=== PATIENT | male | born 1950 | race Caucasian/White ===

== ENCOUNTER 2019-03-30 07:47 | Inpatient (IN) | payer OTHER ==
[2019-03-22 16:46] LABS: EOSINOPHILS # (AUTO) 0.1 X10'3 (0-0.9); LYMPHOCYTES # (AUTO) 2.2 X10'3 (1.1-4.8); LYMPHOCYTES % (AUTO) 41.8 % (21-51); MEAN CORPUSCULAR HEMOGLOBIN 30.1 PG (27.0-31.0); MEAN CORPUSCULAR HGB CONC 34.6 g/dL (33.0-36.5); MEAN CORPUSCULAR VOLUME 87.1 FL (78-98); MEAN PLATELET VOLUME 10.1 FL (7.4-10.4); MONOCYTES # (AUTO) 0.5 X10'3 (0-0.9); MONOCYTES % (AUTO) 10.4 % (2-12); NEUTROPHILS # (AUTO) 2.3 X10'3 (1.8-7.7); NEUTROPHILS % (AUTO) 44.8 % (42-75); PRE OP HEMATOCRIT 40.9 % (42.0-52.0); PRE OP HEMOGLOBIN 14.2 g/dL (14.0-17.9); PRE OP PLATELET COUNT 181 X10'3 (140-440); RED CELL DISTRIBUTION WIDTH 14.8 % (11.5-14.5)
[2019-03-22 16:56] LABS: CLARITY,URINE CLEAR (Clear); COLOR,URINE YELLOW (Yellow); GLUCOSE, URINE NEGATIVE (Neg); KETONES,URINE TRACE mg/dl (Neg); LEUKOCYTE ESTERASE ,URINE NEGATIVE (Neg); NITRITES, URINE NEGATIVE (Neg); OCCULT BLOOD,URINE NEGATIVE (Neg); PROTEIN,URINE NEGATIVE (Neg); UROBILINOGEN,URINE 0.2 E.U/dL (0.2-1.0)
[2019-03-22 17:00] LABS: ALBUMIN 3.7 G/DL (3.4-5.0); ALBUMIN/GLOBULIN RATIO 1.2 (1.1-1.5); ALKALINE PHOSPHATASE 42 IU/L (46-116); BLOOD UREA NITROGEN 20 MG/DL (7-18); BUN/CREATININE RATIO 27.4 (5.4-32.0); CALCIUM 8.9 MG/DL (8.5-10.1); CHLORIDE 105 MMOL/L (99-107); CREATININE 0.73 MG/DL (0.60-1.10); PRE OP ALT 40 U/L (30-65); PRE OP ANION GAP 10 (8-16); PRE OP AST 15 U/L (10-37); PRE OP BILIRUB, TOTAL 0.8 MG/DL (0.0-1.0); PRE OP GLUCOSE 110 MG/DL (70-104); PRE OP POTASSIUM 3.8 MMOL/L (3.4-5.1); PRE OP SODIUM 139 MMOL/L (135-145); TOTAL CARBON DIOXIDE 24.2 MMOL/L (24-32); TOTAL PROTEIN 6.7 G/DL (6.4-8.2); eGFR > 90 ML/MIN
[2019-03-22 17:09] LABS: UA COLLECTION TYPE NON-SPECIFIED
[2019-03-22 17:10] LABS: PRE OP PROTIME 10.2 SECONDS (9.0-12.0)
[~2019-03-30] VITALS: Ht 180.3 cm; Wt 89.8 kg
[2019-03-30] VITALS (21 sets, daily range): BP systolic 104–158; BP diastolic 21–94
[~2019-03-30 07:47] MED LIST: DICL75TA5 PO; HYDR-3972 PO; HYDROmorphone inj. 0.5 MG/0.5 ML DISP.SYRIN IV PRN; LATA2.5D2 RIGHTEYE; TIMO5DRO4 EACHEYE; TRAZ-219 PO; acetaminophen 325mg tablet PO ONE; acetaminophen 325mg tablet PO PRN; bisacodyl 10mg suppository rectal RC PRN; cefazolin/dext.iso 2gm/100 ML IV ONE; celeCOXIB 100mg capsule PO ONE; diphenhydrAMINE 25mg capsule PO PRN; famotidine 20mg tablet PO ONE; gabapentin 300mg capsule PO ONE; magnesium hydroxide 30ml (MOM) UD suspension PO PRN; metoclopramide 5 mg/ml inj IV ONE; ondansetron/PF 4mg/2ml inj IV PRN; oxyCODONE SR 10mg (sust. release) tab -2 tabs (20mg) PO ONE; oxyCODONE/APAP 10/325mg tablet PO PRN; ringers solution, lacted 1,000 ML IV SCH; tranexamic acid inj. 1,000 MG in normal saline 100 ML IV ONE; vancomycin inj 1,500 MG in normal saline 300ml IV soln IV ONE
[2019-03-30] MEDS ORDERED: ROPIVAcaine inj 250 MG, ketorolac tromethamine inj. 30 MG, epiNEPHrine inj 0.5 MG in no... IU ONE (09:00)
[2019-03-30] MEDS ORDERED: tetracaine 1% (10mg/ml) pres. free inj. ONE (09:59)
[2019-03-30] MEDS ORDERED: ROPIVAcaine 0.5% (5mg/ml) 30ml vial ONE (09:59)
[2019-03-30] MEDS ORDERED: fentaNYL/PF 50MCG/1 ML 2ML syringe ONE (10:01)
[2019-03-30] MEDS ORDERED: MIDAZolam 1mg/ml 10ml vial ONE (10:01)
[2019-03-30] MEDS ORDERED: vancomycin 1,000mg inj ONE (10:47)
[2019-03-30] MEDS ORDERED: ringers solution, lacted 1,000 ML IV SCH (11:07)
[2019-03-30] MEDS ORDERED: ondansetron/PF 4mg/2ml inj IV PRN (11:10)
[2019-03-30] MEDS ORDERED: meperidine/PF 25mg/ml syringe IV PRN ×3 (11:10)
[2019-03-30] MEDS ORDERED: proCHLORperazine 10 MG/2 ml inj IV PRN (11:10)
[2019-03-30] MEDS ORDERED: morphine 4 MG/ML inj SYRINge IV PRN ×2 (11:10)
[2019-03-30] MEDS ORDERED: propofol inj 20 ML IV ONE (11:45)
--- NOTE | 2019-03-30 12:11 | NUR ---
Received from OR via , accompanied by Anesthesiologist DR. ALVARADO and report given by Anesthesiolgist. PATIENT ARRIVED VIA HOSPITAL BED, A&OX4, VSS CHARTED, 18GAUGE PIV TO LEFT AC, DARLENE DRESSING TO RIGHT KNEE WITH ICE PACK, EMMANUEL CDI. SENSATION NOTED AT T-11, SCD'S IN PLACE. WILL CONTINUE TO MONITOR.
[2019-03-30] MEDS: ROPIVAcaine 0.2%/PF PAIN PUMP 550 ML IJ SCH ×2 (12:36→21:19)
--- NOTE | 2019-03-30 13:41 | NUR ---
PATIENT TRANSFER CRITERIA MET. REPORT CALLED TO RENATE DAWKINS ON ORTHO ALL QUESTIONS AND CONCERNS ADDRESSED. PATIENT DRESSING TO RIGHT KNEE CD, ON-Q PUMP IN PLACE WITH ICE PACK, SCD'S IN PLACE. PIC INFUSING IVF ORDERED. PATIENT TRANSFERRED WITH ALL PERSONAL BELONGINGS ACCOMPANIED BY STAFF.
[2019-03-30] MEDS: gabapentin 300mg capsule PO SCH ×2 (14:13→21:21)
[2019-03-30] MEDS: timolol 0.5% ophthalmic solution 5ml bottle EACHEYE SCH (15:34)
[2019-03-30] MEDS: cefazolin/dext.iso 2gm/100ml 100 ML IV SCH (15:35)
[2019-03-30] MEDS ORDERED: tranexamic acid inj. 900 MG in normal saline 100ml IV soln 100 ML IV ONE (16:43)
[2019-03-30] MEDS: oxyCODONE/APAP 10/325mg tablet PO PRN ×2 (16:46→21:20)
[2019-03-30] MEDS: potassium cl 20mEq in 1/2 NS 1,000 ML IV SCH (16:55)
--- NOTE | 2019-03-30 18:35 | NUR ---
Patient in room ORTHO 4016. I have received report from JUANCHO Valdivia and had the opportunity to ask questions and assume patient care.
[2019-03-30] MEDS: HYDROmorphone 1 mg/ml syringe IV PRN ×2 (19:35→23:26)
[2019-03-30] MEDS ORDERED: non-formulary drug (Trazodone HCl 1 TAB) PO SCH (21:00)
[2019-03-30] MEDS: traZODone 50mg tablet PO SCH (21:20)
[2019-03-30] MEDS: sennosides 8.6mg tablet PO SCH (21:20)
[2019-03-30] MEDS: latanoprost 0.005% 2.5ml ophthalmic drops RIGHTEYE SCH (22:16)
[2019-03-31] VITALS (7 sets, daily range): BP systolic 101–137; BP diastolic 60–72
[2019-03-31] MEDS: cefazolin/dext.iso 2gm/100ml 100 ML IV SCH (00:38)
[2019-03-31] MEDS: ROPIVAcaine 0.2%/PF PAIN PUMP 550 ML IJ SCH (00:39)
[2019-03-31] MEDS: potassium cl 20mEq in 1/2 NS 1,000 ML IV SCH ×4 (02:47→23:04)
[2019-03-31] MEDS: oxyCODONE/APAP 10/325mg tablet PO PRN ×5 (04:57→22:08)
--- NOTE | 2019-03-31 06:26 | NUR ---
Problems reprioritized. Patient report given, questions answered & plan of care reviewed with JUANCHO Alberto.
--- NOTE | 2019-03-31 06:47 | NUR ---
Patient in room ORTHO 4016. I have received report from Ruthie DAWKINS and had the opportunity to ask questions and assume patient care.
[2019-03-31 07:15] LABS: BASOPHILS % (AUTO) 0.6 % (0-1); EOSINOPHILS # (AUTO) 0.1 X10'3 (0-0.9); EOSINOPHILS % (AUTO) 1.3 % (0-6); HEMATOCRIT 37.4 % (42.0-52.0); HEMOGLOBIN 12.7 g/dl (14.0-17.9); LYMPHOCYTES # (AUTO) 1.1 X10'3 (1.1-4.8); LYMPHOCYTES % (AUTO) 14.1 % (21-51); MEAN CORPUSCULAR HEMOGLOBIN 29.7 PG (27.0-31.0); MEAN CORPUSCULAR VOLUME 87.2 FL (78-98); MEAN PLATELET VOLUME 9.5 FL (7.4-10.4); MONOCYTES # (AUTO) 0.7 X10'3 (0-0.9); MONOCYTES % (AUTO) 8.5 % (2-12); NEUTROPHILS # (AUTO) 5.9 X10'3 (1.8-7.7); NEUTROPHILS % (AUTO) 75.5 % (42-75); PLATELET COUNT 144 X10'3 (140-440); RED BLOOD COUNT 4.28 X10'6 (4.70-6.10); RED CELL DISTRIBUTION WIDTH 13.9 % (11.5-14.5); WHITE BLOOD COUNT 7.8 X10'3 (4.5-11.0)
[2019-03-31 07:44] LABS: ANION GAP 6 (8-16); CHLORIDE 105 MMOL/L (99-107); POTASSIUM 4.6 MMOL/L (3.5-5.1); SODIUM 138 MMOL/L (135-145); TOTAL CARBON DIOXIDE 26.7 MMOL/L (24-32)
[2019-03-31] MEDS: ascorbic acid 500mg tablet PO SCH ×2 (08:16→20:09)
[2019-03-31] MEDS: timolol 0.5% ophthalmic solution 5ml bottle EACHEYE SCH (08:16)
[2019-03-31] MEDS: multivitamins, therapeutics tablet PO SCH (08:17)
[2019-03-31] MEDS: gabapentin 300mg capsule PO SCH ×3 (08:17→20:09)
[2019-03-31] MEDS: HYDROmorphone 1 mg/ml syringe IV PRN ×3 (08:17→20:14)
[2019-03-31] MEDS: aspirin 325mg tablet PO SCH (08:17)
--- NOTE | 2019-03-31 08:21 | NUR ---
increased on Q pump to 12ml/hr, will continue to monitor
--- NOTE | 2019-03-31 11:23 | NUR ---
Student documentation: I have reviewed all interventions, assessments performed and documented by Sari Blum. Student Medication Administration: For this medication-pass time frame, all medication were reviewed, dispensed, administered and documented per hospital policy [facility]
--- NOTE | 2019-03-31 18:28 | NUR ---
Problems reprioritized. Patient report given, questions answered & plan of care reviewed with Nasrin DAWKINS.
[2019-03-31] MEDS: sennosides 8.6mg tablet PO SCH (20:09)
[2019-03-31] MEDS: celeCOXIB 100mg capsule PO SCH (20:09)
[2019-03-31] MEDS: traZODone 50mg tablet PO SCH (20:09)
[2019-03-31] MEDS: latanoprost 0.005% 2.5ml ophthalmic drops RIGHTEYE SCH (20:12)
[2019-04-01] MEDS: oxyCODONE/APAP 10/325mg tablet PO PRN ×2 (04:44→08:20)
--- NOTE | 2019-04-01 06:01 | NUR ---
Problems reprioritized. Patient report given, questions answered & plan of care reviewed with JUANCHO Alberto.
[2019-04-01 06:10] VITALS: BP 125/75
--- NOTE | 2019-04-01 06:38 | NUR ---
Patient in room ORTHO 4016. I have received report from Nasrin DAWKINS and had the opportunity to ask questions and assume patient care.
[2019-04-01] MEDS: HYDROmorphone 1 mg/ml syringe IV PRN (06:43)
[2019-04-01 07:05] LABS: BASOPHILS % (AUTO) 0.6 % (0-1); EOSINOPHILS # (AUTO) 0.1 X10'3 (0-0.9); HEMATOCRIT 35.2 % (42.0-52.0); HEMOGLOBIN 12.1 g/dl (14.0-17.9); LYMPHOCYTES # (AUTO) 1.9 X10'3 (1.1-4.8); LYMPHOCYTES % (AUTO) 29.5 % (21-51); MEAN CORPUSCULAR HEMOGLOBIN 29.9 PG (27.0-31.0); MEAN CORPUSCULAR HGB CONC 34.2 g/dL (33.0-36.5); MEAN CORPUSCULAR VOLUME 87.4 FL (78-98); MEAN PLATELET VOLUME 10.3 FL (7.4-10.4); MONOCYTES # (AUTO) 0.6 X10'3 (0-0.9); MONOCYTES % (AUTO) 9.4 % (2-12); NEUTROPHILS # (AUTO) 3.8 X10'3 (1.8-7.7); NEUTROPHILS % (AUTO) 58.5 % (42-75); PLATELET COUNT 144 X10'3 (140-440); RED BLOOD COUNT 4.03 X10'6 (4.70-6.10); RED CELL DISTRIBUTION WIDTH 14.4 % (11.5-14.5); WHITE BLOOD COUNT 6.5 X10'3 (4.5-11.0)
[2019-04-01] MEDS: gabapentin 300mg capsule PO SCH (08:18)
[2019-04-01] MEDS: timolol 0.5% ophthalmic solution 5ml bottle EACHEYE SCH (08:18)
[2019-04-01] MEDS: aspirin 325mg tablet PO SCH (08:19)
[2019-04-01] MEDS: celeCOXIB 100mg capsule PO SCH (08:19)
[2019-04-01] MEDS: multivitamins, therapeutics tablet PO SCH (08:19)
[2019-04-01] MEDS: ascorbic acid 500mg tablet PO SCH (08:19)
--- NOTE | 2019-04-01 09:10 | NUR ---
patient states he has a BM every 4-5 days Addendum: 04/01/19 at 0914 by Sari ALARCON Amended: Links added.
[2019-04-01 09:22] VITALS: BP 146/78
[2019-04-01] MEDS ORDERED: ASPI-1 PO (10:33)
[2019-04-01] MEDS ORDERED: PER10325T PO (10:34)
--- NOTE | 2019-04-01 12:07 | NUR ---
Patient discharged with all belongings to home with spouse, patient educated on picco dressing and on-Q-pump, bedside delivery of new medications
== END 2019-04-01 11:45 | disposition home or self-care (01) | DRG 470 ==
LOC: PAS IN 07:47 → EDSTATUS 11:45 → ORTHO 4S 13:39
PROVIDERS: ADMIT Orthopaedic Surgery; ATTEND Orthopaedic Surgery
PROC: 3E0T3BZ Introduction of Anesthetic Agent into Peripheral Nerves and Plexi, Percutaneous Approach (ICD-10-PCS; 2019-03-30)
PROC: 0SRC0J9 Replacement of Right Knee Joint with Synthetic Substitute, Cemented, Open Approach (ICD-10-PCS; principal; 2019-03-30 09:58)
DX: M17.11 Unilateral primary osteoarthritis, right knee (principal); D62 Acute posthemorrhagic anemia; H40.9 Unspecified glaucoma; Z79.899 Other long term (current) drug therapy; Z80.9 Family history of malignant neoplasm, unspecified; Z84.89 Family history of other specified conditions
CPT/HCPCS: 36415; 71046; 73560; 80051; 80053; 81003; 82948; 85025; 85610; 85730; 86885; 86900; 86901; 87070; 97110; 97116; 97161; 97530; A6449; A6455; A7000; C1713; C1758; C1776; G0378; J0171; J0690; J1170; J1885; J2250; J2704; J2765; J2795; J3010; J3370; J7030; J7120

== ENCOUNTER 2021-02-23 05:37 | Day surgery (SDC) | payer MEDICARE, BC ==
[2021-02-16 14:39] LABS: BASOPHILS # (AUTO) 0.1 X10'3 (0-0.2); BASOPHILS % (AUTO) 1.2 % (0-1); EOSINOPHILS # (AUTO) 0.1 X10'3 (0-0.9); EOSINOPHILS % (AUTO) 1.9 % (0-6); LYMPHOCYTES # (AUTO) 2.1 X10'3 (1.1-4.8); LYMPHOCYTES % (AUTO) 36.9 % (21-51); MEAN CORPUSCULAR HEMOGLOBIN 29.8 PG (27.0-31.0); MEAN CORPUSCULAR HGB CONC 34.1 g/dL (33.0-36.5); MEAN CORPUSCULAR VOLUME 87.3 FL (78-98); MEAN PLATELET VOLUME 10.6 FL (7.4-10.4); MONOCYTES # (AUTO) 0.6 X10'3 (0-0.9); MONOCYTES % (AUTO) 10.8 % (2-12); NEUTROPHILS # (AUTO) 2.8 X10'3 (1.8-7.7); NEUTROPHILS % (AUTO) 49.2 % (42-75); PRE OP HEMATOCRIT 43.3 % (42.0-52.0); PRE OP HEMOGLOBIN 14.8 g/dL (14.0-17.9); PRE OP PLATELET COUNT 191 X10'3 (140-440); RED BLOOD COUNT 4.96 X10'6 (4.70-6.10)
[2021-02-16 14:46] LABS: CLARITY,URINE CLEAR (Clear); COLOR,URINE STRAW (Yellow); GLUCOSE, URINE NEGATIVE (Neg); KETONES,URINE NEGATIVE (Neg); LEUKOCYTE ESTERASE ,URINE NEGATIVE (Neg); NITRITES, URINE NEGATIVE (Neg); OCCULT BLOOD,URINE NEGATIVE (Neg); PROTEIN,URINE NEGATIVE (Neg); UROBILINOGEN,URINE 0.2 E.U/dL (0.2-1.0)
[2021-02-16 14:51] LABS: UA COLLECTION TYPE VOIDED
[2021-02-16 14:54] LABS: ALBUMIN 3.9 G/DL (3.4-5.0); ALBUMIN/GLOBULIN RATIO 1.2 (1.1-1.5); ALKALINE PHOSPHATASE 54 IU/L (46-116); BLOOD UREA NITROGEN 18 MG/DL (7-18); CALCIUM 8.7 MG/DL (8.5-10.1); CHLORIDE 106 MMOL/L (99-107); CREATININE 0.75 MG/DL (0.60-1.10); PRE OP ALT 55 U/L (30-65); PRE OP ANION GAP 9 (8-16); PRE OP AST 16 U/L (10-37); PRE OP GLUCOSE 97 MG/DL (70-104); PRE OP POTASSIUM 4.1 MMOL/L (3.4-5.1); PRE OP SODIUM 140 MMOL/L (135-145); TOTAL CARBON DIOXIDE 24.8 MMOL/L (24-32); TOTAL PROTEIN 7.1 G/DL (6.4-8.2); eGFR > 90 ML/MIN
[~2021-02-23] VITALS: Ht 177.8 cm; Wt 95.3 kg
[2021-02-23] VITALS (13 sets, daily range): BP systolic 121–142; BP diastolic 74–90
[~2021-02-23 05:37] MED LIST changes: +DICL-211 PO; -DICL75TA5 PO; -HYDR-3972 PO; -HYDROmorphone inj. 0.5 MG/0.5 ML DISP.SYRIN IV PRN; -LATA2.5D2 RIGHTEYE; -TRAZ-219 PO; -acetaminophen 325mg tablet PO ONE; -acetaminophen 325mg tablet PO PRN; -bisacodyl 10mg suppository rectal RC PRN; -cefazolin/dext.iso 2gm/100 ML IV ONE; -celeCOXIB 100mg capsule PO ONE; -diphenhydrAMINE 25mg capsule PO PRN; -gabapentin 300mg capsule PO ONE; -magnesium hydroxide 30ml (MOM) UD suspension PO PRN; -metoclopramide 5 mg/ml inj IV ONE; -ondansetron/PF 4mg/2ml inj IV PRN; -oxyCODONE SR 10mg (sust. release) tab -2 tabs (20mg) PO ONE; -oxyCODONE/APAP 10/325mg tablet PO PRN; -tranexamic acid inj. 1,000 MG in normal saline 100 ML IV ONE; -vancomycin inj 1,500 MG in normal saline 300ml IV soln IV ONE
[2021-02-23] MEDS ORDERED: bacitracin 15gm ointment TP ONE (06:38)
[2021-02-23] MEDS ORDERED: ceFAZolin 2gm in dextrose, iso 50 ML IV ONE (06:55)
[2021-02-23] MEDS ORDERED: propofol inj 20 ML IV ONE (06:55)
[2021-02-23] MEDS ORDERED: sevoflurane 250ml liquid IH ONE (06:56)
[2021-02-23] MEDS ORDERED: ondansetron/PF 4mg/2ml inj ONE (06:56)
[2021-02-23] MEDS ORDERED: dexamethasone sod phosphate 10mg/ml inj ONE (06:56)
[2021-02-23] MEDS ORDERED: MIDAZolam 1 MG/ML 5ML VIAL ONE (06:57)
[2021-02-23] MEDS ORDERED: fentaNYL/PF 50MCG/1 ML 2ML syringe ONE (06:57)
[2021-02-23] MEDS ORDERED: morphine 2 MG/ML inj. syringe IV PRN (08:15)
[2021-02-23] MEDS ORDERED: proCHLORperazine 10 MG/2 ml inj IV PRN (08:15)
[2021-02-23] MEDS ORDERED: ROPIVAcaine 0.2%/PF PUMP/bolus 550 ML POPLITEAL SCH (08:15)
[2021-02-23] MEDS ORDERED: ringers solution, lacted 1,000 ML IV SCH (08:15)
[2021-02-23] MEDS ORDERED: meperidine/PF 25mg/ml syringe IV PRN ×3 (08:15)
[2021-02-23] MEDS ORDERED: ROPIVAcaine 0.2% (10 MG/5 ML) BOLUS INJECTION POPLITEAL PRN (08:15)
[2021-02-23] MEDS ORDERED: ondansetron/PF 4mg/2ml inj IV PRN (08:15)
[2021-02-23] MEDS ORDERED: ketorolac trometh. 30mg/ml inj. ONE (11:10)
[2021-02-23] MEDS ORDERED: ROPIVAcaine 0.5% (5mg/ml) 30ml vial ONE (11:10)
--- NOTE | 2021-02-23 11:25 | NUR ---
Received from OR via [facility] , accompanied by Anesthesiologist LURDES and report given by Anesthesiolgist. PATIENT WITH ON Q SITE TO LEFT THIGH AREA. LEFT LE SPLINT IS CDI AND TOES ARE PWD. 10L MASK ON AND PATIENT VSS. 20G PIV IN RIGHT UE RUNNING LR AT 100. FOOT OF BED GATCHED. Addendum: 02/23/21 at 1139 by Rafael Aguiar RN, RN Amended: Links added.
[2021-02-23] MEDS: morphine 4 MG/ML inj SYRINge IV PRN ×2 (12:07→12:40)
[2021-02-23] MEDS ORDERED: fentaNYL/PF 50MCG/1 ML 2ML syringe IV PRN ×2 (12:45)
[2021-02-23] MEDS ORDERED: HYDROmorphone/PF 0.2 MG/ML SYRINGE IV PRN ×2 (12:45)
--- NOTE | 2021-02-23 13:19 | NUR ---
PATIENT DEEP BREATHED AND COUGHED Q 10 MINS WHILE HERE IN RR. O2 SATS WNL. Addendum: 02/23/21 at 1320 by Rafael Aguiar RN, RN Amended: Links added.
[2021-02-23] MEDS ORDERED: HYDROcodone/acetaminophen 10/325mg tab PO ONE (13:25)
--- NOTE | 2021-02-23 13:25 | NUR ---
All dc criteria for discharge home has been met. IV taken out without complications. All questions answered regarding dc paperwork. Vss. Significant other present to take patient home. Dressings cdi and vital signs stable. Taken out via wheelchair to personal vehicle where patient taken home by family/friend. ALL INSTRUCTIONS COVERED WITH PATIENT AND . Addendum: 02/23/21 at 1326 by Rafael Aguiar RN, RN Amended: Links added.
== END 2021-02-23 13:25 | disposition home or self-care (01) ==
LOC: PAS 05:37
PROVIDERS: ATTEND Podiatrist Foot & Ankle Surgery
DX: M21.42 Flat foot [pes planus] (acquired), left foot (principal); M19.072 Primary osteoarthritis, left ankle and foot; M21.6X2 Other acquired deformities of left foot; G89.18 Other acute postprocedural pain; Z20.822 Contact with and (suspected) exposure to COVID-19; Z90.49 Acquired absence of other specified parts of digestive tract; Z98.890 Other specified postprocedural states; Z79.899 Other long term (current) drug therapy; Z96.651 Presence of right artificial knee joint; Z80.9 Family history of malignant neoplasm, unspecified; Z83.6 Family history of other diseases of the respiratory system
CPT/HCPCS: 27687; 28715; 28735; 36415; 64446; 64448; 73620; 76000; 76937; 80053; 81003; 82948; 85025; 93005; A6223; C1713; C1762; J1100; J1885; J2175; J2250; J2270; J2405; J2704; J2795; J3010; J3370; J7120; U0003; A4215; A4618; A6449; A7000

== ENCOUNTER 2023-06-27 06:38 | Day surgery (SDC) | payer MEDICARE, BC ==
[2023-06-24 12:50] LABS: BASOPHILS # (AUTO) 0.1 X10'3 (0-0.2); BASOPHILS % (AUTO) 0.8 % (0-1); EOSINOPHILS # (AUTO) 0.2 X10'3 (0-0.9); EOSINOPHILS % (AUTO) 2.8 % (0-6); LYMPHOCYTES # (AUTO) 2.3 X10'3 (1.1-4.8); LYMPHOCYTES % (AUTO) 37.3 % (21-51); MEAN CORPUSCULAR HEMOGLOBIN 30.1 PG (27.0-31.0); MEAN CORPUSCULAR HGB CONC 33.4 g/dL (33.0-36.5); MEAN PLATELET VOLUME 10.3 FL (7.4-10.4); MONOCYTES # (AUTO) 0.6 X10'3 (0-0.9); MONOCYTES % (AUTO) 9.9 % (2-12); NEUTROPHILS # (AUTO) 3.1 X10'3 (1.8-7.7); NEUTROPHILS % (AUTO) 49.2 % (42-75); PRE OP HEMOGLOBIN 15.7 g/dL (14.0-17.9); PRE OP PLATELET COUNT 179 X10'3 (140-440); RED BLOOD COUNT 5.22 X10'6 (4.70-6.10); RED CELL DISTRIBUTION WIDTH 14.8 % (11.5-14.5)
[2023-06-24 12:51] LABS: CLARITY,URINE CLEAR (Clear); COLOR,URINE YELLOW (Yellow); GLUCOSE, URINE NEGATIVE (Neg); KETONES,URINE NEGATIVE (Neg); LEUKOCYTE ESTERASE ,URINE NEGATIVE (Neg); NITRITES, URINE NEGATIVE (Neg); OCCULT BLOOD,URINE NEGATIVE (Neg); PROTEIN,URINE NEGATIVE (Neg); UROBILINOGEN,URINE 0.2 E.U/dL (0.2-1.0)
[2023-06-24 12:53] LABS: UA COLLECTION TYPE VOIDED
[2023-06-24 13:05] LABS: ALBUMIN/GLOBULIN RATIO 1.3 (1.1-1.5); ALKALINE PHOSPHATASE 56 IU/L (46-116); BLOOD UREA NITROGEN 17 MG/DL (7-18); BUN/CREATININE RATIO 20.5 (10.0-20.0); CALCIUM 8.9 MG/DL (8.5-10.1); CHLORIDE 104 MMOL/L (99-107); CREATININE 0.83 MG/DL (0.60-1.10); PRE OP ALT 67 U/L (30-65); PRE OP ANION GAP 8 (8-16); PRE OP AST 28 U/L (10-37); PRE OP GLUCOSE 96 MG/DL (70-104); PRE OP POTASSIUM 4.2 MMOL/L (3.4-5.1); PRE OP SODIUM 138 MMOL/L (135-145); TOTAL CARBON DIOXIDE 26.5 MMOL/L (24-32); TOTAL PROTEIN 7.1 G/DL (6.4-8.2); eGFR > 90 ML/MIN
[~2023-06-27] VITALS: Ht 180.3 cm; Wt 97.8 kg
[2023-06-27] VITALS (8 sets, daily range): BP systolic 122–129; BP diastolic 65–89; PULSE 65–85; RESP 15–18; TEMP 97.8; O2SAT 95–98
[~2023-06-27 06:38] MED LIST changes: +DOCUMENT DATE & TIME OF BETA-BLOCKER PO ONE; +FLO0.4C PO; +PREG100C PO; +TIMO5DRO15 EACHEYE; -TIMO5DRO4 EACHEYE; +cefazolin 2gm/D5W 100mL 100 ML IV ONE
[2023-06-27] MEDS ORDERED: ondansetron/PF 4mg/2ml inj IV PRN (09:05)
[2023-06-27] MEDS ORDERED: morphine 2 MG/ML inj. syringe IV PRN (09:05)
[2023-06-27] MEDS ORDERED: ringers solution, lacted 1,000 ML IV SCH (09:05)
[2023-06-27] MEDS ORDERED: hydrALAZINE 20mg/ml inj. IV PRN (09:05)
[2023-06-27] MEDS ORDERED: morphine 4 MG/ML inj SYRINge IV PRN (09:05)
[2023-06-27] MEDS ORDERED: bacitracin 15gm ointment TP ONE (10:28)
[2023-06-27] MEDS ORDERED: BUPIVAcaine/PF 2.5mg/ml (0.25%) 10ml vial ONE (10:28)
[2023-06-27] MEDS ORDERED: ondansetron/PF 4mg/2ml inj ONE (10:38)
[2023-06-27] MEDS ORDERED: propofol inj 20 ML IV ONE (10:38)
[2023-06-27] MEDS ORDERED: midazolam 1 mg/ML 2ml injection ONE (10:38)
[2023-06-27] MEDS ORDERED: fentaNYL/PF 50MCG/1 ML 2ML syringe ONE (10:38)
[2023-06-27] MEDS ORDERED: LIDOcaine 2% (20mg/ml) 5ml vial ONE (10:38)
[2023-06-27] MEDS ORDERED: dexamethasone sod phosphate 10mg/ml inj ONE (10:39)
[2023-06-27] MEDS ORDERED: desflurane 240ml liquid inh. IH ONE (10:39)
[2023-06-27] MEDS ORDERED: acetaminophen 1,000mg/100ml IV 100 ML IV ONE (11:00)
--- NOTE | 2023-06-27 11:45 | NUR ---
Received from OR via [facility], accompanied by Anesthesiologist AARON and report given by Anesthesiolgist. PT AWAKE AND ALERT, OXYGENATING WELL ON 10 LPM O2 VIA MASK, NO RESP DISTRESS NOTED. DENIES NAUSEA OR PAIN AT THIS TIME. GEORGE BANDAGE TO L FOOT, CDI. VSS.
--- NOTE | 2023-06-27 12:50 | NUR ---
PT DENIES PAIN. VSS. TOLERATING PO FLUIDS WELL. DC INSTRUCTIONS EXPLAINED TO PT, HE VERBALIZED UNDERSTANDING. PIV DCD CATH INTACT. LLE DSG CDI. CAM BOOT WAS PUT ON LLE BY PT, HE WAS DCD IN STABLE CONDITION. TAKEN TO CAR VIA .
== END 2023-06-27 12:50 | disposition home or self-care (01) ==
LOC: PAS 06:38
PROVIDERS: ATTEND Podiatrist Foot & Ankle Surgery
DX: M77.52 Other enthesopathy of left foot and ankle (principal); M19.072 Primary osteoarthritis, left ankle and foot; N40.0 Benign prostatic hyperplasia without lower urinary tract symptoms; H40.9 Unspecified glaucoma; Z98.890 Other specified postprocedural states; Z96.662 Presence of left artificial ankle joint; Z90.49 Acquired absence of other specified parts of digestive tract; Z96.651 Presence of right artificial knee joint; Z79.899 Other long term (current) drug therapy; Z79.82 Long term (current) use of aspirin; Z80.9 Family history of malignant neoplasm, unspecified; Z82.5 Family history of asthma and other chronic lower respiratory diseases
CPT/HCPCS: 28122; 36415; 80053; 81003; 82948; 85025; A6222; A6223; J0131; J0690; J2250; J2405; J2704; J3010; J3490; J7030; J7120; Z7506; Z7508; Z7512; A4618; A6449; A7000; J1100

== ENCOUNTER 2025-09-19 10:10 | Outpatient (CLI) | payer MEDICARE, BC ==
[~2025-09-19 10:10] MED LIST changes: -DOCUMENT DATE & TIME OF BETA-BLOCKER PO ONE; -FLO0.4C PO; +TAMS-55 PO; -cefazolin 2gm/D5W 100mL 100 ML IV ONE; -famotidine 20mg tablet PO ONE; -ringers solution, lacted 1,000 ML IV SCH
--- NOTE | 2025-09-19 12:47 | RADIOLOGY REPORT ---
CLINICAL INDICATION: OTHER SPECIFIED JOINT DISORDERS, LEFT ANKLE AND FOOT TECHNIQUE: Noncontrast CT of the left ankle was performed. Sagittal and coronal reformatted images are provided. COMPARISON: None. CT Dose: CTDI volume is 14.4 mGy. Dose-length product is 282.3 mGy*cm FINDINGS: No fracture or dislocation. Narrowing of the ankle mortise likely related to degenerative changes. There are multiple osteophytes inferior to the medial malleolus. 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 The components are well aligned and well seated. There is no displacement of the polyethylene liner. There is a screw in the calcaneus. There are metallic thuy in the midfoot bones with solid bony fusion noted across the tarsometatarsal joints. There are multiple lucencies throughout the bones which may be related to sequelae of the previous surgery, osseous demineralization or arthritis/degenerative cysts. Soft tissues are unremarkable. IMPRESSION: 1. Total ankle replacement. 2. No evidence of hardware failure. 3. Solid bony fusion across the tarsometatarsal joints. 4. Multiple lucencies throughout the bones which may be related to sequelae of previous surgery, osseous demineralization or arthritis/degenerative cysts. No acute osseous abnormality in the left lower extremity. All CT scans at this medical facility are performed using dose modulation techniques as appropriate to a performed exam including the following: Automated exposure control was utilized; adjustment of the MA and/or KV according to patient size; and use of iterative reconstruction technique.
== END 2025-09-19 23:59 | disposition home or self-care (01) ==
LOC: RAD 10:10
PROVIDERS: ATTEND Orthopaedic Surgery Foot and Ankle Surgery
DX: M79.672 Pain in left foot (principal); M25.80 Other specified joint disorders, unspecified joint; M20.20 Hallux rigidus, unspecified foot; M25.872 Other specified joint disorders, left ankle and foot
CPT/HCPCS: 73700